=== PATIENT | female | born 1935 | race Caucasian/White ===

== ENCOUNTER 2022-08-17 11:25 | Emergency (ER) | payer MEDICARE, BC ==
[2022-08-17] VITALS (12 sets, daily range): BP systolic 128–160; BP diastolic 53–72
[~2022-08-17] VITALS: Ht 157.5 cm; Wt 84.4 kg
[2022-08-17] MEDS ORDERED: TRAMADOL HYDROC50 M1 PO (13:43)
== END 2022-08-17 15:55 | disposition home or self-care (01) ==
LOC: ED 11:25
DX: M25.552 Pain in left hip (principal); M25.562 Pain in left knee; E11.9 Type 2 diabetes mellitus without complications; Z95.0 Presence of cardiac pacemaker

== ENCOUNTER 2022-09-26 14:47 | Emergency (ER) | payer MEDICARE, BC ==
[~2022-09-26] VITALS: Ht 157.5 cm; Wt 94.8 kg
[~2022-09-26 14:47] MED LIST: TRAMADOL HYDROC50 M1 PO
[2022-09-26 15:24] VITALS: BP 160/48
[2022-09-26 15:31] VITALS: BP 155/46
[2022-09-26] MEDS ORDERED: CEPHALEXIN500 MG PO (15:40)
[2022-09-26 15:45] VITALS: BP 147/50
[2022-09-26 16:00] VITALS: BP 152/54
[2022-09-26 16:15] VITALS: BP 151/59
[2022-09-26 16:34] VITALS: BP 151/59
== END 2022-09-26 16:36 | disposition home or self-care (01) ==
LOC: ED 14:47
DX: I87.2 Venous insufficiency (chronic) (peripheral) (principal); L03.116 Cellulitis of left lower limb; E11.9 Type 2 diabetes mellitus without complications; Z95.0 Presence of cardiac pacemaker; L03.115 Cellulitis of right lower limb

== ENCOUNTER 2022-10-14 16:38 | Emergency (ER) | payer MEDICARE, BC ==
[~2022-10-14] VITALS: Ht 157.5 cm; Wt 95.0 kg
[~2022-10-14 16:38] MED LIST changes: +CEPHALEXIN500 MG PO
[2022-10-14 17:43] VITALS: BP 174/65
[2022-10-14 18:01] VITALS: BP 156/57
[2022-10-14 18:05] VITALS: BP 145/58
[2022-10-14 18:22] LABS: BASO% 0.5 % (0-3); EOS% 6.9 % (0-8); HEMATOCRIT 32.9 % (37.0-47.0); HEMOGLOBIN 10.2 g/dl (12.0-16.0); IMMATURE GRANULOCYTES 0.1 % (0.0-5.0); LYMPH% 13.6 % (15-41); MEAN CELL VOLUME 102.2 fL CALC (80.0-100.0); MEAN CORPUSCULAR HGB 31.7 pG CALC (26.0-32.0); MONO% 5.6 % (2-13); NEUT# 6.85 thou/uL (2.00-7.15); NEUT% 73.3 % (42-76); RED BLOOD COUNT 3.22 mill/uL (4.20-5.60)
[2022-10-14 18:23] LABS: URINE BILIRUBIN - DIPSTICK Negative (NEGATIVE); URINE BLOOD DIPSTICK Negative (NEGATIVE); URINE GLUCOSE - DIPSTICK Negative (NEGATIVE); URINE KETONE Negative (NEGATIVE); URINE LEUK ESTERASE Negative (NEGATIVE); URINE NITRITE - DIPSTICK Negative (Negative); URINE PH 5.5 (4.5-8.0); URINE PROTEIN - DIPSTICK Negative (NEG-TRACE); URINE SPECIFIC GRAVITY 1.015; URINE UROBILINOGEN - DIPSTICK 0.2 E.U./dL (0.2)
[2022-10-14 18:25] LABS: URINE COLOR Yellow
[2022-10-14 18:45] LABS: ALBUMIN 3.8 g/dL (3.2-5.0); ALKALINE PHOSPHATASE 42 u/l (38-126); ANION GAP 10 (6-22 (CALC)); BILIRUBIN, TOTAL 0.4 mg/dL (0.02-1.3); BUN 30 mg/dL (8-23); BUN/CREATININE RATIO 21 (12-20 (CALC)); CARBON DIOXIDE 31 mmol/l (22-30); CHLORIDE 102 mmol/l (95-108); CREATININE 1.4 mg/dL (0.5-1.0); GFR FOR AFR.AMER. 43 ML/MIN (>=60 (CALC)); GFR OTHER RACES 36 ML/MIN (>=60 (CALC)); POTASSIUM 4.6 mmol/l (3.5-5.1); SGOT/AST 29 u/l (9-36); SODIUM 138 mmol/l (137-146); TOTAL PROTEIN 6.4 g/dL (6.3-8.2)
[2022-10-14] MEDS ORDERED: TORSEMIDE20 M1 PO (19:48)
[2022-10-14 20:05] VITALS: BP 138/77
== END 2022-10-14 20:08 | disposition home or self-care (01) ==
LOC: ED 16:38 → ED-I 18:17 → ED 20:08
PROVIDERS: Nurse Practitioner
DX: R60.0 Localized edema (principal); R09.89 Other specified symptoms and signs involving the circulatory and respiratory systems; I10 Essential (primary) hypertension; E11.9 Type 2 diabetes mellitus without complications; Z95.0 Presence of cardiac pacemaker

== ENCOUNTER 2023-02-23 04:15 | Emergency (ER) | payer MEDICARE, BC ==
[2023-02-23] VITALS (67 sets, daily range): BP systolic 88–166; BP diastolic 33–76
[~2023-02-23] VITALS: Ht 157.5 cm; Wt 74.0 kg
[~2023-02-23 04:15] MED LIST changes: +TORSEMIDE20 M1 PO
[2023-02-23 04:56] LABS: BASO% 0.1 % (0-3); EOS% 3.2 % (0-8); IMMATURE GRANULOCYTES 2.5 % (0.0-5.0); LYMPH% 7.8 % (15-41); MEAN CORPUSCULAR HGB 30.3 pG CALC (26.0-32.0); MEAN CORPUSCULAR HGB CONC 31.6 g/dL CAL (32.0-36.0); MONO% 4.1 % (2-13); NEUT# 12.15 thou/uL (2.00-7.15); NEUT% 82.3 % (42-76); RED BLOOD COUNT 4.22 mill/uL (4.20-5.60); RED CELL DISTRI WIDTH 13.8 % (11.5-15.5)
[2023-02-23 04:59] LABS: HEMATOCRIT 40.5 % (37.0-47.0); HEMOGLOBIN 12.8 g/dl (12.0-16.0)
[2023-02-23 05:01] LABS: ALBUMIN 4.3 g/dL (3.2-5.0); CREATININE 1.5 mg/dL (0.5-1.0); TOTAL PROTEIN 7.3 g/dL (6.3-8.2)
[2023-02-23 05:03] LABS: BILIRUBIN, TOTAL 0.6 mg/dL (0.02-1.3); POTASSIUM 3.6 mmol/l (3.5-5.1)
[2023-02-23 05:22] LABS: URINE BILIRUBIN - DIPSTICK Negative (NEGATIVE); URINE BLOOD DIPSTICK Small (NEGATIVE); URINE GLUCOSE - DIPSTICK 500 mg/dL (NEGATIVE); URINE KETONE Negative (NEGATIVE); URINE LEUK ESTERASE Negative (NEGATIVE); URINE NITRITE - DIPSTICK Negative (Negative); URINE PH 5.5 (4.5-8.0); URINE PROTEIN - DIPSTICK 100 mg/dL (NEG-TRACE); URINE SPECIFIC GRAVITY 1.015; URINE UROBILINOGEN - DIPSTICK 0.2 E.U./dL (0.2)
[2023-02-23 05:24] LABS: URINE COLOR Yellow
[2023-02-23 05:29] LABS: URINE SQUAMOUS EPITHELIAL CELL FEW EPI/hpf (0-FEW); URINE WBC 0-2 WBC/hpf (0-5)
[2023-02-23 05:31] LABS: ACT PARTIAL THROMBO TIME 23.5 SECONDS (20.0-32.5); PROTHROMBIN TIME 10.4 SECONDS (9.0-12.5)
[2023-02-23] MEDS ORDERED: ACETAMINOPHEN325 MG PO (06:08)
[2023-02-23] MEDS ORDERED: DULCOLAX10 MG RE (06:09)
[2023-02-23] MEDS ORDERED: BUSPAR5 MG PO (06:09)
[2023-02-23] MEDS ORDERED: LEXAPRO20 MG PO (06:11)
[2023-02-23] MEDS ORDERED: FERROUS GLUC324 MG PO (06:11)
[2023-02-23] MEDS ORDERED: LASIX 40 MG TAB40 MG PO (06:12)
[2023-02-23] MEDS ORDERED: GUAIFENESI100 MG/51 PO (06:14)
[2023-02-23] MEDS ORDERED: LANTUS100 UNIT SC (06:15)
[2023-02-23] MEDS ORDERED: GLUCAGON1 M1 IM (06:15)
[2023-02-23] MEDS ORDERED: JARDIANCE10 MG PO (06:16)
[2023-02-23] MEDS ORDERED: LABETALOL HYDR200 MG PO (06:17)
[2023-02-23] MEDS ORDERED: ATORVASTATIN CA40 MG PO (06:19)
[2023-02-23] MEDS ORDERED: LOSARTAN POTASS50 MG PO (06:20)
[2023-02-23] MEDS ORDERED: METOLAZONE2.5 MG PO (06:22)
[2023-02-23] MEDS ORDERED: MILK OF MAGNESI1 SUS PO (06:24)
[2023-02-23] MEDS ORDERED: OZEMPIC2 MG SC (06:25)
[2023-02-23] MEDS ORDERED: PEG 3350 PO (06:27)
[2023-02-23] MEDS ORDERED: KLOR-CON M1010 MEQ PO (06:28)
[2023-02-23] MEDS ORDERED: POT CHLORIDE10 ME5 PO (06:29)
[2023-02-23] MEDS ORDERED: VITAMIN C250 MG PO (06:29)
== END 2023-02-23 11:49 | disposition short-term general hospital (02) ==
LOC: ED 04:15
PROVIDERS: Family Medicine
PROC: 0T9B70Z Drainage of Bladder with Drainage Device, Via Natural or Artificial Opening (ICD-10-PCS; principal; 2023-02-23)
PROC: 5A1935Z Respiratory Ventilation, Less than 24 Consecutive Hours (ICD-10-PCS; 2023-02-23)
PROC: 05HM33Z Insertion of Infusion Device into Right Internal Jugular Vein, Percutaneous Approach (ICD-10-PCS; 2023-02-23)
PROC: 3E043XZ Introduction of Vasopressor into Central Vein, Percutaneous Approach (ICD-10-PCS; 2023-02-23)
DX: A41.9 Sepsis, unspecified organism (principal); R65.20 Severe sepsis without septic shock; J18.9 Pneumonia, unspecified organism; I46.8 Cardiac arrest due to other underlying condition; I95.9 Hypotension, unspecified; R79.89 Other specified abnormal findings of blood chemistry; E11.22 Type 2 diabetes mellitus with diabetic chronic kidney disease; I12.9 Hypertensive chronic kidney disease with stage 1 through stage 4 chronic kidney disease, or unspecified chronic kidney disease; N18.9 Chronic kidney disease, unspecified; Z95.0 Presence of cardiac pacemaker; Z79.4 Long term (current) use of insulin

== ENCOUNTER 2023-09-14 23:26 | Emergency (ER) | payer MEDICARE, BC, OTHER ==
[~2023-09-14] VITALS: Ht 157.5 cm; Wt 59.0 kg
[~2023-09-14 23:26] MED LIST changes: +ACETAMINOPHEN325 MG PO; +ATORVASTATIN CA40 MG PO; +BUSPAR5 MG PO; +DULCOLAX10 MG RE; +FERROUS GLUC324 MG PO; +GLUCAGON1 M1 IM; +GUAIFENESI100 MG/51 PO; +JARDIANCE10 MG PO; +KLOR-CON M1010 MEQ PO; +LABETALOL HYDR200 MG PO; +LANTUS100 UNIT SC; +LASIX 40 MG TAB40 MG PO; +LEXAPRO20 MG PO; +LOSARTAN POTASS50 MG PO; +METOLAZONE2.5 MG PO; +MILK OF MAGNESI1 SUS PO; +OZEMPIC2 MG SC; +PEG 3350 PO; +POT CHLORIDE10 ME5 PO; +VITAMIN C250 MG PO
[2023-09-14 23:32] VITALS: BP 135/70
[2023-09-14] MEDS ORDERED: METOLAZONE 2.5 MG/TAB PO ONE (23:40)
[2023-09-14] MEDS ORDERED: FUROSEMIDE 40 MG/4 ML SDV IV ONE (23:40)
[2023-09-14] MEDS ORDERED: NITROGLYCERIN 2% OINT UD 1 GM/PAK TD ONE (23:40)
[2023-09-15 00:18] VITALS: BP 134/64
[2023-09-15 00:18] LABS: BASO% 0.2 % (0-3); HEMATOCRIT 40.4 % (37.0-47.0); IMMATURE GRANULOCYTES 0.3 % (0.0-5.0); LYMPH% 3.7 % (15-41); MEAN CELL VOLUME 97.1 fL CALC (80.0-100.0); MEAN CORPUSCULAR HGB 31.3 pG CALC (26.0-32.0); MEAN CORPUSCULAR HGB CONC 32.2 g/dL CAL (32.0-36.0); MONO% 3.3 % (2-13); NEUT# 9.75 thou/uL (2.00-7.15); NEUT% 92.5 % (42-76); RED BLOOD COUNT 4.16 mill/uL (4.20-5.60); RED CELL DISTRI WIDTH 13.4 % (11.5-15.5)
[2023-09-15 00:24] VITALS: BP 134/63
[2023-09-15 00:24] LABS: CREATININE 1.3 mg/dL (0.5-1.0); TOTAL PROTEIN 6.8 g/dL (6.3-8.2)
[2023-09-15 00:25] LABS: BILIRUBIN, TOTAL 0.4 mg/dL (0.02-1.3); POTASSIUM 3.9 mmol/l (3.5-5.1)
[2023-09-15 00:40] VITALS: BP 136/64
[2023-09-15] MEDS ORDERED: PREDNISONE50 MG PO (00:45)
[2023-09-15] MEDS ORDERED: VENTOLIN HFA IN (00:45)
[2023-09-15] MEDS ORDERED: PAXLOVID PO (00:45)
[2023-09-15] MEDS ORDERED: predniSONE 20 MG/TAB PO ONE (00:50)
[2023-09-15 01:00] VITALS: BP 135/72
[2023-09-15 01:08] VITALS: BP 135/72
== END 2023-09-15 01:08 | disposition home or self-care (01) ==
LOC: ED 23:26
PROVIDERS: Family Medicine
DX: U07.1 COVID-19 (principal); J98.01 Acute bronchospasm; I11.0 Hypertensive heart disease with heart failure; I50.9 Heart failure, unspecified; E11.9 Type 2 diabetes mellitus without complications; I25.10 Atherosclerotic heart disease of native coronary artery without angina pectoris; I87.2 Venous insufficiency (chronic) (peripheral); I25.2 Old myocardial infarction; Z95.0 Presence of cardiac pacemaker; Z79.4 Long term (current) use of insulin